=== PATIENT | male | born 1985 ===

== ENCOUNTER 2020-09-18 19:30 | Outpatient (CLI) | payer OTHER | END 2020-09-18 19:31 | disposition home or self-care (01) | LOC: SLEEPLAB 19:30 | PROVIDERS: ATTEND Family Medicine | DX: G47.33 Obstructive sleep apnea (adult) (pediatric) (principal); F41.9 Anxiety disorder, unspecified; G47.00 Insomnia, unspecified; F32.9 Major depressive disorder, single episode, unspecified; I10 Essential (primary) hypertension; G47.10 Hypersomnia, unspecified; G47.31 Primary central sleep apnea; I49.3 Ventricular premature depolarization | CPT/HCPCS: 95810 ==